=== PATIENT | female | born 1995 | race Caucasian/White ===

== ENCOUNTER 2018-10-01 13:19 | Emergency (ER) | payer SELFPAY, OTHER ==
[2018-10-01] MEDS: IBUPROFEN 600 MG TAB PO (14:49)
[2018-10-01] MEDS: SILVER SULFADIAZINE 1% 25 GM CR TOP (14:49)
== END 2018-10-01 15:50 | disposition home or self-care (01) ==
LOC: FTE 13:19
DX: T24.211A Burn of second degree of right thigh, initial encounter (principal); T24.212A Burn of second degree of left thigh, initial encounter; X12.XXXA Contact with other hot fluids, initial encounter; Y92.9 Unspecified place or not applicable
CPT/HCPCS: 16020; 81025; 99283-25